=== PATIENT | male | born 1960 | race Caucasian/White ===

== ENCOUNTER 2023-08-29 08:32 | Day surgery (SDC) | payer BC ==
[2023-08-23 18:12] VITALS: BMI 33.3
[2023-08-29 09:06] LABS: INR 1.38 (0.83-1.09); PROTHROMBIN TIME (PATIENT) 15.9 SEC (9.7-13.0)
[2023-08-29] MEDS ORDERED: TRANEXAMIC ACID 1000 MG/10 ML VIAL IVPUSH ONE (11:30)
[2023-08-29] MEDS ORDERED: CEFAZOLIN 2 GM in DEXTROSE 5%-WATER - 50 ML IVPB ONE (11:30)
[2023-08-29] MEDS ORDERED: ceFAZolin SODIUM 1 GM VIAL ONE ×2 (11:41→12:59)
[2023-08-29] MEDS ORDERED: THROMBIN (BOVINE) 5,000 UNIT VIAL TP ONE (11:41)
[2023-08-29] MEDS ORDERED: MIDAZOLAM HCL 2 MG/2 ML SINGLE DOSE VIAL ONE (11:44)
[2023-08-29] MEDS ORDERED: DEXAMETHASONE SOD PHOSPHATE/PF 10 MG/ML SDV ONE (11:51)
[2023-08-29] MEDS ORDERED: ACETAMINOPHEN INJECTION 100 ML IVPB ONE (11:51)
[2023-08-29] MEDS ORDERED: ROPIVACAINE HCL 0.5% 30ML VIAL ONE (11:51)
[2023-08-29] MEDS ORDERED: BACITRACIN ZINC 15 GM TUBE TOPICAL OINTMENT ONE (12:12)
[2023-08-29] MEDS ORDERED: BUPIVACAINE HCL/PF 0.5% (5MG/ML) 10 ML VIAL ONE (12:18)
[2023-08-29] MEDS ORDERED: TRANEXAMIC ACID 1000 MG/10 ML VIAL ONE (12:42)
[2023-08-29] MEDS ORDERED: BUPIVICAINE 0.25%/MORPH PF/KETOROLAC - 51ML DISP.SYRINGE IA ONE ×2 (13:54→14:07)
[2023-08-29] MEDS ORDERED: KETOROLAC TROMETHAMINE 30 MG/1 ML VIAL ONE (14:02)
[2023-08-29] MEDS ORDERED: ONDANSETRON 4 MG/2 ML VIAL ONE (14:02)
[2023-08-29] MEDS ORDERED: ONDANSETRON 4 MG/2 ML VIAL IVPUSH PRN (14:23)
[2023-08-29] MEDS ORDERED: LACTATED RINGERS SOLUTION 1,000 ML IV SCH ×2 (14:30→14:45)
[2023-08-29] MEDS ORDERED: oxyCODONE HCL 5 MG TABLET PO PRN (14:43)
[2023-08-29] MEDS ORDERED: PROMETHAZINE HCL 25 MG/1 ML VIAL IVPB PRN (14:43)
[2023-08-29] MEDS: metFORMIN HCL 500 MG TABLET (FP) PO SCH (18:15)
[2023-08-29] MEDS: ACETAMINOPHEN 500 MG TABLET (FP) PO SCH ×2 (18:15→23:59)
[2023-08-29] MEDS: oxyCODONE HCL 5 MG TABLET PO PRN ×2 (20:33→23:59)
[2023-08-29] MEDS: CEFAZOLIN SODIUM 2 GM in DEXTROSE 5%-WATER 100 ML IVPB SCH (20:58)
[2023-08-29] MEDS: CARVEDILOL 25 MG TABLET (FP) PO SCH (21:00)
[2023-08-29] MEDS: SENNOSIDES/DOCUSATE COMBO (SENNA PLUS) TABLET (UD) PO SCH (21:00)
[2023-08-29] MEDS: GABAPENTIN 300 MG CAPSULE PO SCH (21:02)
[2023-08-30] MEDS: oxyCODONE HCL 5 MG TABLET PO PRN ×3 (03:37→12:07)
[2023-08-30] MEDS: ACETAMINOPHEN 500 MG TABLET (FP) PO SCH ×2 (05:00→12:06)
[2023-08-30] MEDS: metFORMIN HCL 500 MG TABLET (FP) PO SCH (06:16)
[2023-08-30] MEDS: CEFAZOLIN SODIUM 2 GM in DEXTROSE 5%-WATER 100 ML IVPB SCH (06:16)
[2023-08-30] MEDS ORDERED: ENOXAPARIN NA (PORCINE) 40 MG/0.4 ML DISP.SYRIN SQ ONE (08:00)
[2023-08-30] MEDS ORDERED: ASPIRIN 81 MG CHEWABLE TABLETS PO SCH (10:00)
[2023-08-30] MEDS: CARVEDILOL 25 MG TABLET (FP) PO SCH (10:00)
[2023-08-30] MEDS ORDERED: PATIENT'S OWN MEDICATION (NON-FORMULARY) (Omeprazole [Omeprazole] 20 MG Tab.Rap.Dr) PO SCH (10:00)
[2023-08-30] MEDS ORDERED: LOSARTAN POTASSIUM 50 MG TABLET PO SCH (10:00)
[2023-08-30] MEDS ORDERED: PANTOPRAZOLE 40 MG TABLET PO SCH (10:00)
[2023-08-30] MEDS ORDERED: MULTIVITAMINS (DAILY MVI) TABLET (FP) PO SCH (10:00)
[2023-08-30] MEDS: SENNOSIDES/DOCUSATE COMBO (SENNA PLUS) TABLET (UD) PO SCH (10:00)
[2023-08-30] MEDS ORDERED: WARFARIN NA 1 MG TABLET PO SCH (10:00)
[2023-08-30] MEDS: GABAPENTIN 300 MG CAPSULE PO SCH (10:00)
[2023-08-30 14:38] VITALS: BP 138/64; PULSE 89; RESP 18; TEMP 98.2
== END 2023-08-30 17:06 | disposition home health service (06) ==
LOC: FASUSAT 08:32 → FM/S 15:51 → FASUSAT 08-30 17:06
PROVIDERS: ATTEND Orthopaedic Surgery
PROC: 8E0Y0CZ Robotic Assisted Procedure of Lower Extremity, Open Approach (ICD-10-PCS; 2023-08-29)
PROC: 0SRC0L9 Replacement of Right Knee Joint with Medial Unicondylar Synthetic Substitute, Cemented, Open Approach (ICD-10-PCS; principal; 2023-08-29 13:12)
DX: M17.11 Unilateral primary osteoarthritis, right knee (principal)
CPT/HCPCS: 20985; 27446; C1776; S2900; 36415; 73560-TC-RT-FY; 82962; 85610; 94760; 97010-GP; 97116-GP; 97161-GP; C1889